=== PATIENT | male | born 1975 | race Caucasian/White ===

== ENCOUNTER → 2023-12-16 10:36 | Outpatient (REF) | payer OTHER, SELFPAY | LOC: PAVMRI 10:36 | PROVIDERS: ATTENDING PHYSICIAN Surgery; FAMILY PHYSICIAN Internal Medicine | DX: M79.9 Soft tissue disorder, unspecified (principal) | CPT/HCPCS: 73220; A9575 ==

== ENCOUNTER 2024-02-07 06:43 | Day surgery (SDC) | payer OTHER, SELFPAY ==
[2024-02-07 06:20] VITALS: BP 140/91
[2024-02-07 06:39] VITALS: BMI 38.0
[2024-02-07 06:48] VITALS: BMI 38.0
[2024-02-07] MEDS: TYLENOL 1000 MG PO (06:55)
[2024-02-07 08:40] VITALS: BP 117/76
[2024-02-07 08:50] VITALS: BP 112/72
--- NOTE | 2024-02-07 08:52 | OR.RPT ---
Addendum entered and electronically signed by Francis Alan MD 02/07/24 11:27:
The assistance of Leonel WHITE was required due to the complexity of the procedure. During the procedure she assisted with retraction, resection, and closure of the wound.
Original Note:
Operative Report
Operative Report
Primary Surgeon: Dayanna
Assisting: Leonel WHITE
Pre-op Diagnosis: Lipoma of left upper extremity
Post-op Diagnosis: Same
Procedure Performed: Excision of lipoma
Anesthesia Type: MAC local
Specimen / Cultures: Lipoma
Estimated Blood Loss: 5cc
Complications: None immediate
Operative Findings: 9cm x 6cm x 4cm lobulated fatty mass excised in toto
Date of Surgery: 02/07/24
Indications: This 48M developed a symptomatic left upper extremity lipoma and open repair was elected.
PROCEDURE: After informed consent was obtained, the patient marked and then was brought to the operative suite and placed supine on the operating table. The patient was sedated, prepped and draped in the usual sterile manner and then repositioned
in right lateral decubitus. An adequate local anesthetic was administered using lidocaine 1% with epi.
A full thickness elliptical skin incision was made over the marked mass. The incision was carried down to the capsule with electrocautery. Blunt digital dissection was used to free the lipoma from surrounding tissues. Limited electrocautery was used
here as well. The mass was ultimately undermined with cautery and delivered in toto through the wound and passed off the table as specimen. The wound was then irrigated with copious sterile saline, and hemostasis was obtained using Bovie
electrocautery. The skin was approximated with 3-0 Vicryl deep dermal interrupted sutures and 4-0 monocryl suture in a subcuticular fashion. Topical skin glue was then applied. All surgical counts were reported as correct.
The patient tolerated the procedure well and was taken to the PACU in stable condition.
[2024-02-07 09:05] VITALS: BP 121/80
[2024-02-07 09:20] VITALS: BP 126/80
== END 2024-02-07 09:40 | disposition home or self-care (01) ==
LOC: SDS 06:43
PROVIDERS: ATTENDING PHYSICIAN Surgery
DX: D17.22 Benign lipomatous neoplasm of skin and subcutaneous tissue of left arm (principal)
CPT/HCPCS: 24071; 88304

== ENCOUNTER 2024-04-14 06:31 | Day surgery (SDC) | payer OTHER, SELFPAY ==
[2024-04-14] VITALS (10 sets, daily range): BP systolic 100–133; BP diastolic 53–93; BMI 39.4
[2024-04-14] MEDS: NORMOSOL-R/PLASMALYTE-A 1000 IV (07:39)
[2024-04-14] MEDS: MOTRIN 600 MG PO (11:45)
== END 2024-04-14 12:00 | disposition home or self-care (01) ==
LOC: SDS 06:31
PROVIDERS: ATTENDING PHYSICIAN Specialist
DX: Z30.2 Encounter for sterilization (principal)
CPT/HCPCS: 55250; 88302

== ENCOUNTER 2024-07-10 19:39 | Emergency (ER) | payer OTHER, SELFPAY ==
[2024-07-10 19:42] VITALS: BP 181/88
--- NOTE | 2024-07-10 22:46 | ED.GENMED ---
History of Present Illness
General
Chief Complaint: DVT/Possible Blood Clot
Time Seen by Provider: 07/10/24 22:08
History of Present Illness
History of Present Illness:
49-year-old male without significant past medical history presenting for left calf pain. Symptoms started earlier this afternoon. Denies inciting injury or trauma. Pain has been constant with onset. Denies numbness or tingling to his leg. He
has been able to ambulate. Denies chest pain or difficulty breathing. Denies redness or swelling. Denies ever having this pain in the past. Does note that he works a sedentary job, however denies any recent prolonged immobility or travel.
Denies additional acute medical complaints
Phy Exam
Physical Exam
Physical Exam:
General: Well-appearing, no clinical signs of dehydration, nontoxic and in no acute distress
HEENT: protecting airway
Neck: appears supple
CV: Normal heart rate, regular rhythm
Resp: No accessory muscle use, no increased work of breathing, lungs clear to auscultation bilaterally
Abd: no distension
Extremities: No deformities, no swelling, no erythema, pulses and sensation intact. Mild reproducible tenderness to the left calf. Range of motion intact
Neuro: alert, no focal neurologic deficit
: deferred
Rectal: deferred
Psych: Normal affect
Skin: Intact
Course
Orders/Labs/Results
Orders:
Orders
07/10/24 19:46
Legs, left US [US Periph Venous LOWER Ext LT] Urgent
Comment:
Reason For Exam: left calf pain
Vital Signs
Initial and Last Documented VS:
Initial Vital Signs
Temp Pulse Resp BP Pulse Ox
98.4 F 72 18 181/88 98
07/10/24 19:42 07/10/24 19:42 07/10/24 19:42 07/10/24 19:42 07/10/24 19:42
Last Documented Vital Signs
Temp Pulse Resp BP Pulse Ox
98.4 F 72 18 181/88 98
07/10/24 19:42 07/10/24 19:42 07/10/24 19:42 07/10/24 19:42 07/10/24 19:42
MDM/Problems Addressed
MDM/Problems Addressed:
49-year-old male presenting for left calf pain. Vital signs on arrival are significant for high blood pressure.
On exam patient is resting comfortably, no acute distress or discomfort. Overall benign examination of the left lower extremity. No infectious findings. No report of trauma, no deformity, with range of motion intact. Without concern for
traumatic injury. No neurovascular compromise. Focal tenderness to the left musculature, muscle strain versus spasm. DVT ultrasound obtained, unremarkable. At this time feel stable for discharge with close outpatient follow-up and supportive
therapy. Explained that if symptoms are persisting, should have repeat ultrasound in 1 to 2 weeks. Patient and at bedside verbalized understanding.
*Critical Care Note
Total Time (30-74mins, 75-104mins- exclusive of procedures): Not Applicable
ED Attending Note
-
Portions of this chart may have been created with voice recognition software.� Occasional wrong word or��sound alike� substitutions may have occurred due to the inherent limitations of voice recognition software.
Discharge Plan
Departure
Patient Disposition: Home (Routine Discharge)
Date of Disposition: 07/10/24
Time of Disposition: 22:49
Patient with high blood pressure during this ER visit?: Yes
Condition: Good
Discharge Problem:
Pain of left calf
Instructions: BLOOD PRESSURE
Prescriptions:
No Action
lisinopril 5 mg Tablet
5 mg PO HS
Marjuana Edibles
1 gummy PO PRN PRN (Reason: anxiety)
Activity Restrictions/Additional Instructions:
You were seen in the emergency department for left calf pain
You were found to have a normal ultrasound of your leg, without any evidence of any blood clots.
Please follow-up closely with your primary care physician. If symptoms are persisting, return to the hospital or follow-up with your doctor for repeat ultrasound in 1 to 2 weeks.
Return to the emergency department for any worsening of your symptoms, or any development of chest pain, difficulty breathing, abdominal pain with persistent vomiting and inability to tolerate food or liquid by mouth (concern for dehydration),
weakness, headache or confusion, fever greater than 100.4, or any additional symptoms that are concerning to you.
Thank you for choosing [facility].
Interventions
Interventions:
*Risk Screen - Suicide Last Done: 07/10/24 19:42
*General Assessment Last Done: 07/10/24 19:42
*Neglect/Abuse Screening Last Done: 07/10/24 19:42
*ED- Fall Risk Assessment Last Done: 07/10/24 22:12
ED-Peripheral Vascular Assessment Last Done: 07/10/24 22:11
Discharge Date and Time
Print Language: YORUBA
== END 2024-07-10 23:04 | disposition home or self-care (01) ==
LOC: EMR 19:39
PROVIDERS: EMERGENCY PHYSICIAN Student in an Organized Health Care Education/Training Program; FAMILY PHYSICIAN Internal Medicine
DX: M79.662 Pain in left lower leg (principal); R03.0 Elevated blood-pressure reading, without diagnosis of hypertension
CPT/HCPCS: 99284; 93971